=== PATIENT | male | born 1935 | race Caucasian/White ===

== ENCOUNTER 2016-10-04 08:50 | Inpatient (IN) | payer MEDICARE, OTHER ==
[~2016-10-04] VITALS: Ht 172.7 cm; Wt 68.6 kg
--- NOTE | ~2016-10-04 | HP ---
PATIENT'S NAME: HERMELINDA GRISSOM [facility] AGE: 80 Y [address] ROOM: [address] [address] LOCATION: [facility] ADMIT DATE: 10/04/2016 History & Physical DISCHARGE DATE: FAMILY PHYSICIAN: Everardo Mitchell MD ATTENDING PHYSICIAN: Santino DOUGLAS DATE OF SERVICE: ADDENDUM: CVA: The patient was initially admitted for workup for fall and altered mental status. Part of the etiology workup was CVA. MRI of brain shows small acute or subacute lacunar infarct in anterior right thalamus. No hemorrhage or mass effect. To give the patient aspirin. Start the patient on full dose Lipitor. Discussed finding with the patient. The patient already has an echo order. We will acquire echocardiogram. We will acquire CTA of head and neck. We will keep the patient on telemonitor. Neurology already consulted on admission. We will call Neurology again to notify the finding. We will change observation to inpatient due to MRI finding and diagnosis of CVA. STELLA WALTERS MD AD/modl /[id number] D: [id number] T: [id number] HISTORY & PHYSICAL
--- NOTE | ~2016-10-04 | ECHO ---
Transthoracic Echocardiography Report (TTE) Demographics Patient Name HERMELINDA GRISSOM Date of Study 10/07/2016 Patient Number [id number] Visit Number [id number] Date of 1935 Room Number G6232 Accession Number [id number] Gender Male Age 80 year(s) Referring Stephen Tanner Morale Officer Georgina Hillman RVT Physician MD Sabiha De Physician Interpreting Naren Strauss Agricultural Research Director Physician Supervising Ordering Physician Sabiha De MD/MLP Nurse Stress Bread Room Hand Conclusions Summary Technically difficult exam. The estimated left ventricular ejection fraction is 50%. Normal RV size and systolic function. Mild concentric left ventricular hypertrophy. Diastolic function indeterminate due to patient's arrhythmia. IVC measures 1.08 cm with inspiratory collapse. Mild mitral annular calcification. Procedure Type of Study TTE procedure:2D Echocardiogram. Procedure Date Date: 10/07/2016 Start: 03:13 PM Study Location: Inpatient Portable Technical Quality: Adequate visualization Indications:Syncope. Appropriate Use Criteria: 9 Patient Status: Routine HR: 54 bpm BP: 163/78 mmHg M-Mode/2D Measurements LV Diastolic Dimension: 4.68 cm LV Systolic Dimension: 3.68 cm LV Septum Diastolic: 1.45 cm LV PW Diastolic: 1.38 cm AO Root Dimension: 3.1 cm Cardiac Output: 1.81 l/min AV Cusp Separation: 1.8 cm LVOT: 2 cm RV Base: 2.32 cm LVOT VTI: 10.7 cm RV Mid: 2.42 cm LV Stroke volume: 33.6 ml TAPSE: 2.38 cm TDI-S': 17.9 cm/s Doppler Measurements AV Peak Velocity: 0.94 m/s MV Peak E-Wave: 0.34 m/s AV Peak Gradient: 3.53 mmHg MV Peak A-Wave: 0.47 m/s AV Mean Gradient: 2 mmHg MV E/A Ratio: 0.73 LVOT Peak Velocity: 0.5 m/s PV Peak Velocity: 0.72 m/s PV Peak Gradient: 2.09 mmHg E' Septal Velocity: 0.05 m/s A' Septal Velocity: 0.12 m/s E' Lateral Velocity: 0.05 m/s A' Lateral Velocity: 0.12 m/s Findings Left Ventricle Mild concentric left ventricular hypertrophy. Diastolic function indeterminate due to patient's arrhythmia. Right Ventricle Normal right ventricle structure and function. Left Atrium Normal left atrial size. Right Atrium IVC measures 1.08 cm with inspiratory collapse. Mitral Valve Mild mitral annular calcification. Aortic Valve Normal aortic valve structure and function. Tricuspid Valve Normal tricuspid valve structure and function. Pulmonic Valve Normal pulmonic valve structure and function. Pericardial Effusion No evidence of pericardial effusion. Miscellaneous The aortic root appears mildly dilated. The maximum diameter measures 3.1 cm. Pleural Effusion No evidence of pleural effusion. Contractility Score LV regional wall motion:(0-Non visualized 1-Normal 2-Hypokinesis 3-Akinesis 4-Dyskinesis 5-Aneurysm) Signature dtt: PATIENCE BALTAZAR dtd: 10/07/16 7208 Physician Self Edit
--- NOTE | ~2016-10-04 | NDGEN ---
PATIENT'S NAME: HERMELINDA GRISSOM [facility] AGE: 80 Y [address] ROOM: [place] [address] LOCATION: [facility] ADMIT DATE: 10/04/2016 Neurodiagnostics DISCHARGE DATE: FAMILY PHYSICIAN: Everardo Mitchell MD ATTENDING PHYSICIAN: Santino DOUGLAS PROCEDURE: ELECTROENCEPHALOGRAM DATE OF PROCEDURE: 10/07/2016 TEST: TECH: CLINICAL DIAGNOSIS: DURATION OF EE minutes. REASON FOR EEG: Syncope/fall. CLINICAL HISTORY: The patient is a 80-year-old male, who presented with acute encephalopathy. He has past history of hypothyroidism and dementia. He also had a fall. He is a poor historian. Over the past 8 months, the patient's memory has significantly declined according to family. EEG FINDINGS: The patient is awake for 60% to 70% of the EEG, asleep for remaining. During the awake portions of EEG, 7 to 8 hertz background was seen in the posterior head regions. During the sleep phase, vertex waves were seen in the central head regions. Activation procedures included photic stimulation between 3 to 30 hertz, which did not show any abnormalities. CLASSIFICATION: Abnormal I ; awake, asleep, 10/20 scalp electrodes. 1. Background slow. IMPRESSION: This EEG shows evidence of a mild diffuse encephalopathy. No epileptiform discharges or EEG seizures were seen during this recording. MD GAEL RIVERA/modl /[id number] dtt: 10/08/16 1737 , NANO JIMENEZ dtd: 10/07/16 1755
--- NOTE | ~2016-10-04 | ENPV ---
Carotid Duplex Study Demographics Patient Name HERMELINDA GRISSOM Date of Study 10/07/2016 Patient Number [id number] Gender Male Date of 1935 Age 80 Visit Number [id number] Height 68 Accession Number [id number] Weight 151 Referring Sabiha Delgado MD Physician Physician Physician Ordering Physician Sabiha De President & Ceo Lube Technician Georgina Hillman [facility] Conclusions Summary The right internal carotid artery has mild, 1-39%, plaque and stenosis. The right vertebral artery is present with antegrade flow. The left internal carotid artery has mild, 1-39%, plaque and stenosis. The left vertebral artery is present with antegrade flow. Procedure Type of Study: Cerebral:Carotid, Carotid Doppler Bilateral. Indications for Study:Syncope. Appropriate Use Criteria:9 Blood Pressure:Left arm 163/78 mmHg. Patient Status:Routine. Study Location:Inpatient Portable. Technical Quality:Adequate visualization. Velocities are measured in cm/s ; Diameters are measured in cm Carotid Right Measurements Carotid Left Measurements + +--------+--------+ + + + +--------+ --------+ + + !Location !PSV !EDV !Angle !%Stenosis ! !Location !PSV ! EDV !Angle !%Stenosis ! + +--------+--------+ + + + +--------+ --------+ + + !Prox CCA !71 !12 !42 ! ! !Prox CCA !92 ! 15 !54 ! ! + +--------+--------+ + + + +--------+ --------+ + + !Dist CCA !62 !16 !60 ! ! !Dist CCA !55 ! 12 !54 ! ! + +--------+--------+ + + + +--------+ --------+ + + !Prox ICA !60 !14 !60 ! ! !Prox ICA !58 ! 12 !54 ! ! + +--------+--------+ + + + +--------+ --------+ + + !Mid ICA !48 !16 !36 ! ! !Dist ICA !70 ! 29 !54 ! ! + +--------+--------+ + + + +--------+ --------+ + + !Dist ICA !51 !17 !36 ! ! !Prox ECA !88 ! !54 ! ! + +--------+--------+ + + + +--------+ --------+ + + !Prox ECA !173 ! !60 ! ! !Vertebral !34 ! !36 ! ! + +--------+--------+ + + + +--------+ --------+ + + !Vertebral !41 ! !42 ! ! !Subclavian !67 ! ! ! ! + +--------+--------+ + + + +--------+ --------+ + + !Bkan !61 ! ! ! ! + +--------+--------+ + + - There is antegrade vertebral flow noted on the right side. - There is antegrade verte bral flow noted on the left side. - Add'l Measurements:ICAPSV/CCAPSV 0.84.ICAEDV/CCAEDV 1.49. - Add'l Measurements:ICAPS V/CCAPSV 0.76.ICAEDV/CCAEDV 1.98. Impressions Right Impression There is a moderate degree of smooth calcified plaque in the right carotid bifurcation . Signature dtt: Jayant Driscoll dtd: 10/07/16 1542 Physician Self Edit
--- NOTE | ~2016-10-04 | HP ---
PATIENT'S NAME: HERMELINDA GRISSOM [facility] AGE: 80 Y [address] ROOM: [place] [address] [place] [facility] [place] DATE: 10/04/2016 History & Physical DISCHARGE DATE: FAMILY PHYSICIAN: Everardo Mitchell MD ATTENDING PHYSICIAN: Santino DOUGLAS DATE OF SERVICE: CHIEF COMPLAINT: Acute encephalopathy. HISTORY OF PRESENT ILLNESS: The patient is a 80-year-old gentleman with past medical history of hypothyroidism and recent dementia who presents here from home with altered mental status and fall. The patient is a poor historian. Information is gathered from the . Apparently, the patient has been having memory issues ongoing for the past 8 months and has been progressively getting worse. Yesterday afternoon, the patient and [facility] and reports that it was warm, and he was sitting by the sun the whole day. They came back home and the patient was noted to be somewhat tired and fatigued than usual. The patient left on his recliner yesterday evening. This morning, the patient was found down on the floor, face down, when saw him, the patient was awake, but was weak and unable to bring himself up. picked the patient up and brought him here for further investigation. The patient is alert and oriented x1, not oriented to time and place, and denies any event of syncope or fall. The patient denies chest pain, shortness of breath, abdominal pain, nausea, vomiting, dysuria, weight loss, and diarrhea. Of note, reports that for the past 8 months or so, the patient's memory has declined. MEDICAL HISTORY: Dementia and hypothyroidism. PAST SURGICAL HISTORY: No surgical history. FAMILY HISTORY: Father had coronary artery disease. Mother of old age. 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 MEDICATION: PATIENT'S NAME: HERMELINDA GRISSOM [facility] AGE: 80 Y [address] ROOM: [address] [address] [place]: [facility] [place] DATE: 10/04/2016 History & Physical DISCHARGE DATE: FAMILY PHYSICIAN: Everardo Mitchell MD ATTENDING PHYSICIAN: Santino DOUGLAS Medications have been reconciled. REVIEW OF SYSTEMS: All systems have been reviewed and are negative except for what mentioned in the HPI. PHYSICAL EXAMINATION: VITAL SIGNS: Afebrile, blood pressure 159/71, respiratory rate 14, heart rate of 57, saturating 95% on room air. GENERAL APPEARANCE: The patient is alert and awake, lying on bed comfortably. HEAD: Normocephalic, atraumatic. EYES: Extraocular muscle intact. No discharge. NOSE: No nasal discharge. EARS: No ear discharge. MOUTH: Dry oral mucosa. CHEST: Clear to auscultation bilaterally. HEART: Regular rate and rhythm. No murmurs, rubs, or gallops. ABDOMEN: Soft, nontender, and nondistended. Bowel sounds present. SKIN: Warm to touch with poor turgor. MUSCULOSKELETAL: Range of motion intact. No obvious effusion noted. KNIFE GLAZER: The patient is alert and oriented x1, the patient is not oriented to place, time, and situation. Motor and sensory grossly intact. ASSESSMENT AND PLAN: 1. Acute encephalopathy. The patient is a 80-year-old gentleman with recent history of dementia and hypothyroidism, who presents here with fall and worsening of confusion. Etiology at this time unknown. Vital signs stable. On initial neurological examination, motor and sensory grossly intact. The patient alert and oriented x1, compared to recent mentation, this is a new worsening. His initial CT negative. No signs of infection. CT head negative. Chest x-ray unremarkable. UA currently pending. Etiology for fall might be syncope or seizure. Also of cerebrovascular accident is entertained. We will acquire MRI of brain without contrast. We will acquire echocardiogram to further investigate possible syncope and structural heart disease. We will acquire EEG for possible underlying postictal symptoms. Neurology consulted. We will admit the patient for observation to workup encephalopathy, possible syncope, or seizure. 2. Syncope. Possible syncope as the patient was found on the floor. Initial CT is negative. We will acquire echocardiogram and put the patient on telemonitor. We will also acquire EEG. 3. Dementia. The patient has been having dementia for the past 8 months and it is getting progressively worsening. We will acquire TSH level and RPR. We will also acquire vitamin B12 level. MRI is pending and Neurology is on board. PATIENT'S NAME: HERMELINDA GRISSOM [facility] AGE: 80 Y [address] ROOM: [address] [address] [place]: [facility] [place] DATE: 10/04/2016 History & Physical DISCHARGE DATE: FAMILY PHYSICIAN: Everardo Mitchell MD ATTENDING PHYSICIAN: Santino DOUGLAS 4. Hypothyroidism. Continue home medication. We will acquire TSH. 5. Dehydration. I suspect the patient might be dehydrated, has poor skin turgor and dry oral mucosa. We will start the patient on IV fluid. 6. Physical deconditioning. We will consult PT and OT. Assessment and plan was discussed with . We will admit the patient for observation. Spent greater than 45 minute in patient care. MD MARLEN SOLIS/modl /[id number] D: [id number] T: [id number] HISTORY & PHYSICAL
--- NOTE | ~2016-10-04 | DS ---
PATIENT'S NAME: HERMELINDA GRISSOM [facility] AGE: 80 Y [address] [place] [facility] [place], [place] [address] LOCATION: [facility] ADMIT DATE: 10/04/2016 Discharge Summary DISCHARGE DATE: 10/08/2016 FAMILY PHYSICIAN: Everardo Mitchell MD ATTENDING PHYSICIAN: Sabiha De PRIMARY DIAGNOSES: 1. Right thalamic cerebrovascular accident. 2. Acute encephalopathy. 3. Physical deconditioning. 4. Dyslipidemia. 5. Alzheimer dementia. 6. Vitamin B12 deficiency. 7. Essential hypertension. PRINCIPAL PROCEDURES: Done for the patient, none was indicated. LABORATORY DATA ON ADMISSION: WBC remained the same on admission. Sodium prior to discharge was stable throughout the hospital stay, it was 143. Creatinine also was stable throughout the hospital stay, prior to discharge it was 1.1. Bicarb was stable throughout the hospital stay. Potassium was stable at 3.8. Liver function test was also stable throughout the hospital stay. Total cholesterol was 242, triglyceride was 128, HDL was 41, and LDL was 176. INR is 1.0. Serum iron of 48, TIBC of 213, and transferrin saturation of 23%. CRP was less than 0.29. Vitamin B12 of 632. Ferritin of 641.8. Procalcitonin was less than 0.05. Microbiology: RPR was non- reactive. RADIOLOGY: Chest x-ray is reported as no evidence of acute pulmonary disease. CT of the head without contrast, no acute intracranial abnormality. MRI of the brain, small acute or subacute lacunar infarct in anterior right thalamus. No hemorrhage or mass effect. Moderately advanced brain atrophy. CTA of the head and neck is reported as right ICA cavernous segment significant atherosclerotic irregularity with narrowing including a severe focal stenosis at the level of the posterior genu. 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 Echocardiogram is reported as ejection fraction of 50%, normal RV size and systolic function, and mild concentric left ventricular hypertrophy. For the hospital course and for history of present illness, please take a look at the H and P, which was done by Dr. Landis. HOSPITAL COURSE: The patient was admitted to Neuro Trauma Unit, and was managed as per the stroke order pathway without tPA, given the time of presentation of the patient. His other stroke workup was abnormal, which PATIENT'S NAME: HERMELINDA GRISSOM [facility] AGE: 80 Y [address] ROOM: [id number] [place], [place] [address] LOCATION: [facility] ADMIT DATE: 10/04/2016 Discharge Summary DISCHARGE DATE: 10/08/2016 FAMILY PHYSICIAN: Everardo Mitchell MD ATTENDING PHYSICIAN: Sabiha De included an abnormal lipid panel, and also a CTA of the head and neck also shows some narrowing in the ICA. Please refer to the report of the CT of head and neck. His echocardiogram was within normal limits. For the first day of the hospital stay, the patient was a bit drowsy and difficult to stay awake. For this, there was concern for probable underlying or undiagnosed seizure. So, he did get an EEG done, which did not show any epileptiform changes. The patient was managed as per the stroke order set. He was aggressively hydrated for permissive hypertension. The next day, he did start physical therapy. The patient appeared to have developed some physical deconditioning; however, he did not have any neurological deficits. He was also being followed by Tele Neurology as well. He continued with his Occupational Therapy and Physical Therapy, which he was cooperative with, but however, the patient did show periods of forgetfulness during the stay, and he did demonstrate clinical evidence of dementia. After the patient was evaluated by Dr. Ruffin, they felt that the patient would benefit from inpatient rehab, which he did not really want to agree to, but however, patient was talked into agreeing for at least a week. On the day of discharge, the patient was started on a low-dose blood pressure medication of Norvasc. Vital signs were stable on the day of discharge, and he was discharged to . MEDICATIONS ON DISCHARGE: Included 1. Aspirin 81 mg p.o. daily. 2. Lipitor 80 mg p.o. daily, new medication. 3. Synthroid 50 mcg p.o. daily. 4. Multivitamin one tablet p.o. daily. 5. Protonix 40 mg p.o. daily, new medication. 6. PreserVision one capsule p.o. twice daily. 7. Vitamin D3, 2000 units p.o. daily. 8. Vitamin B12 dose subq every thirty days. 9. Norvasc 10 mg p.o. daily, new medication. MD INDIA GUPTA/ana maria /[id number] d: 10/09/16 0117 t: 10/12/16 1619, DISCHARGE SUMMARY
--- NOTE | ~2016-10-04 | CON ---
PATIENT'S NAME: HERMELINDA GRISSOM [facility] AGE: 80 Y [address] ROOM: [place] [address] LOCATION: [facility] ADMIT DATE: 10/04/2016 Consultation DISCHARGE DATE: FAMILY PHYSICIAN: Everardo Mitchell MD ATTENDING PHYSICIAN: Santino LANDIS REFERRING PHYSICIAN: KEV DAVALOS MD A consult for Dr. Landis, hospitalist. HISTORY OF PRESENT ILLNESS: This 80-year-old gentleman was admitted on 10/04 with history of being found on floor with altered mental status, unable to remember recent events, and possibly confused. He did undergo evaluation including CT scan which showed no gross abnormalities; however, MRI of the brain showed small acute and subacute lacunar infarcts in the anterior right thalamus. He has been having history of progressive dementia for the last 8 months or so, but nothing like this episode. He has no trauma. History of hypothyroid. SOCIAL HISTORY: He denies smoking and/or drinking. PHYSICAL EXAMINATION: Now, he is alert, confused. Not able to orient well to person, place, and time. He has good attention span, maintains good eye contact. His voice is clear and not wet. He is hesitant to say something. He can understand well; however, he is apraxic with his mouth and lips movement. Tongue and soft palate are moving symmetrical, and voice is clear and not wet. He can move all 4 with muscle strength of about 4/5 throughout. Deep tendon reflexes are 1+ throughout. He has good bowel and bladder control so far. MEDICATIONS: He is on the following medications: 1. Vitamin B12. 2. Theragran-M. PATIENT'S NAME: HERMELINDA GRISSOM [facility] AGE: 80 Y [address] ROOM: [place] [id number] LOCATION: [facility] ADMIT DATE: 10/04/2016 Consultation DISCHARGE DATE: FAMILY PHYSICIAN: Everardo Mitchell MD ATTENDING PHYSICIAN: Santino LANDIS 3. Levothyroxine. 4. Vitamin D3. 5. Aspirin. 6. Protonix. 7. Trandate. 8. Lipitor. 9. NaCl 0.9%. ASSESSMENT AND PLAN: I feel that this gentleman is doing well. He needs to continue speech therapy; however, PT and OT have been initiated, and he is doing well. I feel that he can go on outpatient basis, but he needs to follow with the speech pathologist for a while, and probably he can do that under his family physician's supervision; however, he should not drive and/or operate any mechanical device until he is re-evaluated. Thank you for this referral. All the above was explained to him in detail. He verbalized understanding and so did his . EARL WILSON MD WMValorie/modl /[id number] d: 10/07/16 1154 t: 10/08/16 0826, CONSULTATION REPORT
--- NOTE | ~2016-10-04 | ER ---
PATIENT'S NAME: HERMELINDA GRISSOM [facility] AGE: 80 Y [address] ROOM: [place] [address] LOCATION: [facility] ADMIT DATE: 10/04/2016 ER/Outpatient Report DISCHARGE DATE: FAMILY PHYSICIAN: Everardo Mitchell MD ATTENDING PHYSICIAN: Santino DOUGLAS CHIEF COMPLAINT: Generalized weakness. 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 Last night, he went to the field and when he came back, he was very weak and hot. He did not eat supper, like he normally would and was just not feeling well. No specific complaints according to the family. He does have a history of high blood pressure. He slept on the recliner this morning, which is unusual for him and this morning upon awakening, the found him face down on the floor next to the chair. She was unable to get him up, he had to be lifted by a family member, placed in a vehicle, and brought in. He supposedly was nonverbal. PAST MEDICAL HISTORY: Documented on the record and reviewed by me. SOCIAL HISTORY: Documented on the record and reviewed by me. MEDICATIONS: Documented on the record and reviewed by me. ALLERGIES: DOCUMENTED ON THE RECORD AND REVIEWED BY ME. REVIEW OF SYSTEMS: All systems were reviewed and negative except as noted in the HPI. PHYSICAL EXAMINATION: VITAL SIGNS: Blood pressure 222/93, pulse 60, respiratory rate 16, temperature 97.3, SpO2 is 96% on room air. Pain 0/10. GENERAL: Elderly male, in no obvious pain or distress. No other acute findings. NEUROLOGIC: The patient is awake, he is minimally verbal for me. He has no specific complaints. No dysarthria and does follow commands in all extremities. He is diffusely weak but symmetric. No focal deficits appreciated on exam. HEENT: Normocephalic, atraumatic. Eyes are PERRL. Oropharynx is clear. PATIENT'S NAME: HERMELINDA GRISSOM [facility] AGE: 80 Y [address] ROOM: [place] [address] LOCATION: [facility] ADMIT DATE: 10/04/2016 ER/Outpatient Report DISCHARGE DATE: FAMILY PHYSICIAN: Everardo Mitchell MD ATTENDING PHYSICIAN: Santino DOUGLAS NECK: Supple. Trachea is midline. CHEST: Heart is regular rate and rhythm. LUNGS: Clear to auscultation bilaterally with no rhonchi, wheezes, or rales. ABDOMEN: Soft, nontender, and nondistended. No rebound or guarding. EXTREMITIES: Warm and well perfused. No other obvious abnormalities. SKIN: Warm, dry, and intact. LABORATORY DATA AND X-RAYS: Head CT is unremarkable per Radiology. EKG reveals sinus rhythm, heart rate of 50 with normal intervals, and other than long QT with slight left axis deviation. There is inversion of the T-waves inferiorly. No comparison EKG. Procalcitonin is below threshold. CMS without appreciable abnormality other than elevation of BUN at 26. GFR 59. Amylase, lipase, CK-MB, and troponin are below detectable threshold. TPO is below threshold. Free T4 and TSH are within appropriate limits. CBC without appreciable abnormality. Lactate is 1.1. IMPRESSION: Acute onset of lethargy and weakness with unclear etiology, stroke is considered likely. EMERGENCY DEPARTMENT COURSE: The patient was seen and evaluated as above. His blood pressure was very high but he had no evidence of end-organ dysfunction other than not thinking correctly. I was unable to detect any acute neurologic abnormality. The patient was sleeping on several re-evaluations, was easily arousable, and continue to be able to speak and follow commands. He, however, was not at his baseline vigorousness and with his history, I was concerned. We will admit him to the Hospitalist Service with an MRI pending for further evaluation. His blood pressures trended down significantly while in the emergency department. However, after discussion of admission, his blood pressures did increase somewhat. At that time, he was admitted with plans to obtain the MRI. MD EMMA POWELL/ana maria /[id number] d: 10/05/16 1152 t: 10/14/163, OUTPATIENT REPORT
[2016-10-04 09:47] LABS: BASOPHIL # 0.1 K/uL (0.0-0.2); BASOPHIL % 0.5 %; EOSINOPHIL # 0.2 K/uL (0.0-0.5); EOSINOPHIL % 1.9 %; HEMATOCRIT 40.4 % (37.0-53.0); HEMOGLOBIN 13.3 g/dL (11.0-16.0); IMMATURE GRANULOCYTE % 0.3 %; LYMPHOCYTE # 1.4 K/uL (0.8-4.0); MCH 29.3 pg (27.0-34.0); MCHC 32.9 gm/dL (32.0-36.5); MONOCYTE # 0.5 K/uL (0.0-1.0); MONOCYTE % 5.7 %; MPV 8.7 fl (9.4-12.4); NEUTROPHIL % 76.6 %; NRBC % 0 /100WBC (0-0.00); PLATELET COUNT 214 K/uL (150-450); RBC 4.54 M/uL (3.50-5.50); RDW-CV 12.9 % (11.9-14.6); WBC 9.1 K/uL (4.0-11.0)
[2016-10-04 09:57] LABS: PROTIME 10.5 SECONDS (9.8-11.4); PTT 28 SECONDS (25-32)
[2016-10-04 10:10] LABS: ALBUMIN 3.5 gm/dL (3.5-5.0); ALK PHOS 81 IU/L (33-138); ALT 28 IU/L (12-78); ANION GAP 14.8 (10.0-19.0); AST 19 IU/L (10-40); BLOOD UREA NITROGEN 26 mg/dL (6-24); CALCIUM 9.2 mg/dL (8.5-10.5); CHLORIDE 106 mMol/L (96-110); CO2 24 mMol/L (22-32); CREATININE 1.2 mg/dL (0.6-1.3); ESTIMATED GFR (MDRD EQUATION) 59; POTASSIUM 3.8 mMol/L (3.7-5.1); SODIUM 141 mMol/L (135-145); TOTAL BILIRUBIN 0.7 mg/dL (0.0-1.5); TOTAL PROTEIN 7.8 g/dL (6.0-8.4)
[2016-10-04] MEDS ORDERED: LEVOTHROID (SY50 MCG PO (13:28)
[2016-10-04] MEDS ORDERED: VITAMIN E400 UNI2 PO (13:41)
[2016-10-04] MEDS ORDERED: PRESERVISION L1 EACH PO (13:41)
[2016-10-04] MEDS ORDERED: COD LIVER OIL1 EACH PO (13:42)
[2016-10-04] MEDS ORDERED: VITAMIN D-32000 UNI1 PO (13:42)
[2016-10-04] MEDS ORDERED: VITAMIN B-1000 MCG/M SUB-Q (13:44)
[2016-10-04] MEDS ORDERED: MEMORY VITAMIN PO (13:44)
--- NOTE | 2016-10-04 14:16 | NUR ---
D: pt admitted around 1330 from ER for fall/confusion. Pt poor historian and left to go home and didn't think he had much medical hx. hx of heart valve prolapse and thyroid problems. Pt has had increased memory issues last 6 months. Had a busy day yesterday with family and when they got home he was very tired, wouldn't eat supper and went to sleep in his recliner. woke up this am and found him flat on his face on the floor and couldn't get up. Bp sytolic in 200's most of time in ER but nothing given. CT was negative, no signs of infection. MRI of head done, awaiting results. BP upon arrival to floor is 214/106 pulse 68. Pt is confused and does not know where he is or what the year is. MD aware of BP, concerned for possible TIA or CVA, awaiting MRI results. Has scabs to left shoulder and a few red spots to right lower leg and buttocks.
--- NOTE | 2016-10-04 15:55 | NUR ---
D: pt admitted from ER @ 1330 for fall. Pt found laying face down next to his recliner this am by (see admission note). Pt hypertensive and bradcardiac at times in ER. systolic by 215-240 since arrival to floor, MD aware, to give labetalol IV if greater than 220 and heart rate greater than 60, have not needed to give it because bp back down to 170's at this time. Pt confused unware of where he is. MRI confirmed CVA. No facial droop or arm weakness noted at this time. Tele on. NPO for now until swallow study, see all new orders. Transfer to NTU for higher level of care.
--- NOTE | 2016-10-04 19:10 | NUR ---
Significant Event: PT TRANSFERRED FROM MSU TO ROOM 6232 AT 1700 PER BED. PT ALERT; ORIENTED TO SELF. FOLLOWS COMMANDS. MODERATE, EQUAL STRENGTH X4. PERRLA. ORDER TO KEEP SBP <220. SBP ON ARRIVAL WAS 173/86; ON ROOM AIR. DENIES ANY PAIN. Follow up: TELENEUROLOGY CONSULT, ECHO TOMORROW
--- NOTE | 2016-10-05 05:06 | NUR ---
Significant Event: PATIENT IS ALERT AND ORIENTED TO PERSON. FOLLOWS COMMANDS. PERRLA. FORGETFUL-CONFUSED AT TIMES. EQUAL MODERATE STRENGTH. SR-AMY. KEEP SBP LESS THAN 220- PRN HYDRALAZINE. 2+ PULSES. ROOM AIR-C/D, O2 IF NEEDED. NPO-DID NOT PASS NURSE BEDSIDE SWALLOW. USES URINAL AND IS INCONTINENT. 1A GB. SCATTERED ABRASIONS AND SCABS. PIV IN LEFT FOREARM WITH NS AT 100 ML/HR. FAMILY AT BEDSIDE. NIHSS-3. Follow up: ECHO TODAY 10/05. EEG ON ThursdaySeptember.
--- NOTE | 2016-10-05 14:08 | NUR ---
Significant Event: PT DISORIENTED TO PLACE/TIME. FORGETFUL. HX DEMENTIA. STROKE SCALE 3. MILD APHASIA. PERRLA. FOLLOWS COMMANDS. MODERATE, EQUAL STRENGTH X4. TRANSFERS WITH 1-ASSIST/GAIT BELT. CONTINENT/INCONTINENT OF URINE. LARGE BM THIS SHIFT. HAS BEEN UP IN THE CHAIR MOST OF THE DAY. TO KEEP SBP LESS THAN 220. ON ROOM AIR. BRADYCARDIA WITH PVC'S AT TIMES. BILATERAL CALF PUMPS ON. IV TO L)FA INFUSING NS AT 100 ML/HR. SPEECH CLEARED PT FOR A REGULAR DIET WITH THIN LIQUIDS. TAKES MEDICATIONS WHOLE WITH WATER. DENIES ANY PAIN. Follow up: CONTINUE TO MONITOR
[2016-10-06 06:25] LABS: ANION GAP 10.8 (10.0-19.0); BLOOD UREA NITROGEN 21 mg/dL (6-24); CALCIUM 8.5 mg/dL (8.5-10.5); CHLORIDE 110 mMol/L (96-110); CO2 26 mMol/L (22-32); CREATININE 1.1 mg/dL (0.6-1.3); ESTIMATED GFR (MDRD EQUATION) > 60; MAGNESIUM 2.1 mg/dL (1.8-2.6); PHOSPHORUS 2.4 mg/dL (2.5-4.9); POTASSIUM 3.8 mMol/L (3.7-5.1); SODIUM 143 mMol/L (135-145)
--- NOTE | 2016-10-06 07:25 | NUR ---
Significant Event: Patient is alert and oriented to person. Forgetful and confused at times. Follows commands. Moderate strength. SR-SB, keep SBP less than 220, DBP less than 120. Room air. Takes pills whole with water-regular diet with thin liquids. Uses urinal, incontinent, and will get up to bathroom. 1A with GB. NS at 100 in L) FA PIV. Last BM 10/05-bowels are active x4. Follow up: No pork products-per yarsanism. Echo and EEG on .
--- NOTE | 2016-10-06 16:19 | NUR ---
ULTRA HIGH FALL RISK Significant Event: A/O X1, forgetful/confused, cooperative, needs cues, 1 assist/gait belt. voids per toilet, ambulates in martel x3, up in chair all shift, good appetite. L)FA saline lock, NIHSS=3, Follow up: sleeps in recliner at home. ECHO/EEG in a.m.
--- NOTE | 2016-10-07 05:08 | NUR ---
Significant Event: Patient is alert and oriented to person. Follows commands with cueing. Can be impulsive/fidgety when he needs to use the restroom. VSS. Denies TAPIA, pain, or N/T. PERRLA. Equal moderate strength. SR-SB, HTN to keep SBP less than 220 and DBP less than 120. Room air. Regular diet with thin liquids-slightly aphasic. Last BM 10/05-bowels are active x4. Uses urinal and up to bathroom with 1A. PIV to L) post FA. at bedside. NIHSS-2.Afebrile. Likes to sleep in the recliner at night. Follow up: Echo and EEG today.
--- NOTE | 2016-10-07 12:27 | NUR ---
Significant Event:PT IS ALERT TO PERSON. THIS IS HIS BASELINE ACCORDING TO . FORGETFUL. HAS TROUBLE EXPRESSING HIMSELF AT TIMES. FOLLOW SIMPLE COMMANDS. MODERATE STRENGTH. UP 1A GB. CLEAR AND DIMINISHED LUNG SOUNDS. NONPRODUCTIVE COUGH. IV SL'D. HAD EEG TODAY. Follow up:ALARMS
--- NOTE | 2016-10-07 14:24 | NUR ---
Introduced self and role of care management to patient and his . They live in [place]. She states that he is normally able to do all his own ADL's. She does assist as needed. I explained that the [facility]. Patients states that the only way he will be willing to stay is if she can stay with him. I called and spoke with Thais ARIAS and she stated he will have a private room. I updated patient and his . They are will to "give rehab a try". Will plan on transfer to [facility] 10/08 at 0900. Kathleen LAURA and Dr Ordonez notified.
--- NOTE | 2016-10-08 05:34 | NUR ---
Significant Event: PATIENT IS ALERT AND ORIENTED TO PERSON. FOLLOWS COMMANDS WITH CUEING. VSS. PERRLA. EQUAL MODERATE STRENGTH THROUGHOUT. THE LAST HALF OF THE SHIFT THE PATIENT HAS BEEN A LITTLE RESTLESS AND HAS REMOVED MONITOR SEVERAL TIMES. SR-SB, HAS HAD SBP IN THE 190'S.-WE ARE TO KEEP SBP LESS THAN 220 AND DBP LESS THAN 120. ROOM AIR. REGULAR THIN LIQUIDS. BOWELS ARE ACTIVE X4-LAST BM 10/05. CONT AND INCONT OF URINE. 1A GB/CANE. PIV IN LEFT FA-SL'D. Follow up:GIRP TODAY AT 0900.
--- NOTE | 2016-10-08 08:50 | NUR ---
Significant Event:PT IS ALERT TO PERSON. FOLLOWS SIMPLE COMMANDS. PUPILS ARE EQUAL AND BRISK. NO C/O NUMBNESS OR TINGLING. NIHSS 3. CLEAR AND DIMINISHED LUNG SOUNDS. PRODUCTIVE COUGH BUT PT WILL NOT SPIT OUT SPUTUM. ACTIVE BS. ABRASION TO R) INGRAM AND L) SHOULDER. UP 1 ASSIST WITH CANE. AT BEDSIDE. PLANS TO GO TO [facility] TODAY Follow up:
== END 2016-10-08 10:26 | DRG 64 ==
LOC: GMED 08:50 → GNTU 12:02 → GMSU 12:02 → GNTU 15:48
PROVIDERS: Emergency Medicine; Hospitalist; ADMIT Internal Medicine
PROC: 4A00X4Z Measurement of Central Nervous Electrical Activity, External Approach (ICD-10-PCS; principal; 2016-10-07)
PROC: B246ZZZ Ultrasonography of Right and Left Heart (ICD-10-PCS; principal; 2016-10-07)
DX: I63.9 Cerebral infarction, unspecified (principal); G93.40 Encephalopathy, unspecified; E86.0 Dehydration; G30.9 Alzheimer's disease, unspecified; F02.80 Dementia in other diseases classified elsewhere, unspecified severity, without behavioral disturbance, psychotic disturbance, mood disturbance, and anxiety; E03.9 Hypothyroidism, unspecified; R55 Syncope and collapse; E53.8 Deficiency of other specified B group vitamins; I10 Essential (primary) hypertension
CPT/HCPCS: J7030; Q9967

== ENCOUNTER 2016-10-08 10:28 | Inpatient (IN) | payer MEDICARE ==
[~2016-10-08] VITALS: Ht 172.7 cm; Wt 68.4 kg
--- NOTE | ~2016-10-08 | HP ---
PATIENT'S NAME: HERMELINDA GRISSOM [place] AGE: 80 Y [address] ROOM: [address] [address] LOCATION: [facility] ADMIT DATE: 10/08/2016 History & Physical DISCHARGE DATE: FAMILY PHYSICIAN: Everardo Mitchell MD ATTENDING PHYSICIAN: Earl Wilson DATE OF SERVICE: HISTORY OF PRESENT ILLNESS: This 80-year-old gentleman is admitted for continuous medical treatment and intensive rehabilitation. 1. Unstable gait. 2. Dependent activities of daily and self-care. 3. Status post left-side decreased strength and coordination. 4. Confusion and unable to remember and orient self well with difficulty with memory secondary to acute encephalitis with altered mental status and falling secondary to a CVA. 5. Comorbid condition at risk of falling and dependent activities of daily and self-care. PAST MEDICAL HISTORY: 1. Dementia, progressive for the last several months as per his , recently accelerating. 2. Hypothyroidism. 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 Denied any alcohol and/or drug abuse. Alert, fairly oriented if cued to his surroundings, otherwise unable to remember details. VITAL SIGNS: Blood pressure 176/81, temperature 97.9, pulse 57, respirations 18. He is 5 feet tall and weighs about 68.6 kg. ALLERGIES: NO KNOWN ALLERGIES. I SAW THIS GENTLEMAN ON INITIAL CONSULT ON 10/07/2016, AND I DID SUGGEST THAT PROBABLY IF HE CONTINUES TO DO WELL, HE COULD GO AND BE FOLLOWED UP AN OUTPATIENT BASIS WITH HIS FAMILY PHYSICIAN. HOWEVER, HE STILL REMAINS MARKEDLY CONFUSED AND UNABLE TO REMEMBER AND EASILY AT RISK OF MAKING MISTAKES AND STILL AT RISK OF FALLING. ALTHOUGH, HE CAN WALK 300 FEET THE LAST TIME, HE IS WITH IMPAIRED COGNITION PATIENT'S NAME: HERMELINDA GRISSOM [place] AGE: 80 Y [address] ROOM: [address] [address] LOCATION: [facility] ADMIT DATE: 10/08/2016 History & Physical DISCHARGE DATE: FAMILY PHYSICIAN: Everardo Mitchell MD ATTENDING PHYSICIAN: Earl Wilson AND AT RISK OF FALLING. PHYSICAL EXAMINATION: HEAD: Otherwise normocephalic with slight left facial droop and left-side neglect and unattending to the left side unless skewed. NEUROLOGIC: Cranial nerves 2 through 12 are otherwise within normal limits except for his cognition. He is unable to remember and/or be able to remember well. It been going on for quite some time and for the last several months with acceleration lately. NECK: Otherwise is supple. Trachea is central. CHEST: Moving equally and lungs are clinically clear. HEART: Regular sinus rhythm. ABDOMEN: Soft. Tongue and soft palate are moving symmetrical. Voice is clear and not wet. He is hesitant to talk. He has history of hypothyroidism and history of dementia, progressive. 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 MEDICATIONS: He is on the following medications: 1. Aspirin 81 mg p.o. daily. 2. Lipitor 80 mg p.o. daily. 3. Vitamin D 2000 units p.o. daily. 4. Theragran-M 1 tablet p.o. daily. 5. Protonix 40 mg p.o. daily. 6. Xylocaine 1% vial as needed. 7. Vitamin C 1 cap p.o. b.i.d. 8. Vitamin B12 1000 mcg subcu q.30 days. ASSESSMENT AND PLAN: At the present time, he can ambulate up to 300 feet with close supervision. He is at the risk of falling, and we will put on intensive PT, OT, speech 3 hours per day 15 hours per week for the coming about 2 weeks aiming to discharge on modified independence in a.m., and on 10/09, we will send for CBC, urinalysis, CMS, and prealbumin. We will keep on hospitalist to follow as necessary. All the above was explained to him and his . They verbalized understanding and in agreement with plan of care. EARL WILSON MD PATIENT'S NAME: HERMELINDA GRISSOM [place] AGE: 80 Y [address] ROOM: [id number] [place], [place] [address] LOCATION: [facility] ADMIT DATE: 10/08/2016 History & Physical DISCHARGE DATE: FAMILY PHYSICIAN: Everardo Mitchell MD ATTENDING PHYSICIAN: Earl Wilson/modl /[id number] D: [id number] T: [id number] HISTORY & PHYSICAL
--- NOTE | ~2016-10-08 | OR ---
PATIENT'S NAME: HERMELINDA GRISSOM [facility] AGE: 80 Y [address] ROOM: [place] [address] LOCATION: [facility] ADMIT DATE: 10/08/2016 OR/Procedure Report DISCHARGE DATE: 10/15/2016 FAMILY PHYSICIAN: Everardo Mitchell MD ATTENDING PHYSICIAN: Catracho Ruffin SURGEON: Goran Casanova MD DISBURSING AGENT: DATE OF PROCEDURE: 10/13/2016 CORRECTED PATIENT ACCOUNT 10/16/16 AO PREOPERATIVE DIAGNOSES: 1. Transitional cell carcinoma of bladder. 2. Benign prostatic hyperplasia with bladder obstruction. POSTOPERATIVE DIAGNOSIS: 1. Transitional cell carcinoma of bladder. 2. Benign prostatic hyperplasia with bladder obstruction. 3. Final pathology pending. PROCEDURE: Cystoscopy, transurethral resection of bladder tumor (2 to 3 cm). ANESTHESIA: Regional. INDICATION: This is a 80-year-old gentleman, currently residing on rehab recovering from a CVA. He was found to have significant hematuria. He underwent diagnostic cystoscopy and retrograde which demonstrated a right- sided urothelial carcinoma. Upper tracts were unremarkable with exception of changes consistent with chronic outlet obstruction. There were no masses or filling defects. At that time, his diagnostic procedure, he was anticoagulated. We have held that. He presents at this time for definitive resection. PROCEDURE: Having obtained informed consent, the patient was taken to the cystoscopy suite. He was prepped and draped sterilely and in lithotomy position. A spinal block was placed. The resectoscope was assembled and guided into the urethra. The course of the urethra was unremarkable back to prostatic urethra. He has marked hypertrophy. Prostate is quite friable. My initial impression was that was likely where his bleeding was coming from in the phase of anticoagulation. We then found the tumor on the right side. I have started him on a five alpha reductase inhibitor. He has two separate lesions overlying the right intramural tunnel. They were approximately cm each with another small satellite lesion. Total tumor volume is 2 to 3 cm combining the three lesions. Unfortunately, the more lateral lesion is directly over the obturator. In spite of repositioning bit and bring that right leg and then turning down our cut power, we were still PATIENT'S NAME: HERMELINDA GRISSOM [facility] AGE: 80 Y [address] ROOM: [place] [address] LOCATION: [facility] ADMIT DATE: 10/08/2016 OR/Procedure Report DISCHARGE DATE: 10/15/2016 FAMILY PHYSICIAN: Everardo Mitchell MD ATTENDING PHYSICIAN: Catracho Ruffin getting a significant reflex. I ended up cauterizing a lot of that tumor to avoid perforation. We also had to be cognizant of the intramural tunnel right under his. I can see the orifice, and the tumor progresses up the right side over the intramural tunnel and then out laterally. I got all visible tumor resected and/or cauterized. We then removed all of the fragments. I placed a roller ball and continue with further cauterization of the base and periphery. After a final check for hemostasis, a 20-Slovenian catheter was placed. It irrigates nicely. The case was concluded. The patient tolerated the procedure well. Blood loss was minimal. The tumor sent for specimen. The patient returned to recovery in awake and stable condition. GORAN CASANOVA MD [facility]/modl /[id number] CC: MD Everardo Ocasio MD CORRECTED PATIENT ACCOUNT 10/16/16 AO d: 10/13/16 1932 t: 10/21/16 0636, OPERATIVE SUMMARY
--- NOTE | ~2016-10-08 | OR ---
PATIENT'S NAME: HERMELINDA GRISSOM [facility] AGE: 80 Y [address] ROOM: [id number] [place], [place] [address] LOCATION: [facility] ADMIT DATE: 10/08/2016 OR/Procedure Report DISCHARGE DATE: FAMILY PHYSICIAN: Everardo Mitchell MD ATTENDING PHYSICIAN: Catracho Ruffin SURGEON: Goran Casanova MD IMPLANT POLISHER: DATE OF PROCEDURE: 10/10/2016 PREOPERATIVE DIAGNOSES: 1. Gross and painless hematuria. 2. Recent fall with altered mental status with a probable lacunar infarct by MRI. 3. Remote history of smoking. POSTOPERATIVE DIAGNOSES: 1. Benign prostatic hypertrophy. 2. Urothelial carcinoma involving the right lateral wall. PROCEDURE: Cystoscopy and retrograde. ANESTHESIA: Sedation. INDICATION: This is a 80-year-old gentleman admitted last week with the recent fall and mental status changes. MRI scan suggests acute or subacute lacunar infarct. He is convalescing on the rehab unit. Dr. Ruffin had consulted me regarding gross hematuria. Upon review with the patient and his (she provides most history), he has never had any urologic history, complaints or exposure to urologic intervention. Consistent with that, his admission medications do not include any relevant medications. In fact, he has been quite healthy. 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 He was content with his premorbid voiding pattern. Never noticed any blood. He had been started on Lovenox. They did notice blood in his urine. He presents at this time for cystoscopy and retrograde. He is on Lovenox at this point. This will be diagnostic. PROCEDURE: Having obtained informed consent, the patient taken the cystoscopy suite. Prepped and draped sterilely and in lithotomy position. IV sedation was administered. The 21-Arabic cystoscope was assembled and guided into the urethra. The course of the urethra was unremarkable back to the prostatic urethra. He has marked trilobar hypertrophy. I have to look straight up to get over his middle lobe. Being on Lovenox, simple passage of the scope stir PATIENT'S NAME: HERMELINDA GRISSOM [facility] AGE: 80 Y [address] ROOM: [id number] [place], [place] [address] LOCATION: [facility] ADMIT DATE: 10/08/2016 OR/Procedure Report DISCHARGE DATE: FAMILY PHYSICIAN: Everardo Mitchell MD ATTENDING PHYSICIAN: Catracho Ruffin up some bleeding. I suspected that was going to be our source. Unfortunately, as we take a careful look around the bladder, we find obvious papillary lesions on the right side behind the orifice and along the right wall. They were least two separate lesions measuring at least a centimeter each. Also, consistent with chronic outlet obstruction is marked cellule and diverticula formation in his bladder wall. Preliminary survey was undertaken. It was difficult to say because of all the bowel gas, but I think he has a nonobstructing stone. It appears to overlie the left renal shadow. As we will see on retrograde, it appears to be in the collecting system. Preliminary survey was otherwise unremarkable. Because of his marked hypertrophy, we have to look down to see his orifices. Therefore, I used an acorn catheter. Retrogrades were obtain. Consistent with his chronic outlet obstruction, he has marked J-hooking of his ureters and his ureters were quite tortuous. Fortunately, they were not dilated. We had seen previously that his renal function is well-maintained. The bladder was drained. The case was concluded. I am going to add a 5-alpha reductase inhibitor in the form of dutasteride. We will hold his Lovenox. We will make arrangements for elective transurethral resection of his bladder tumor. The patient returned to Recovery, awake and stable condition. GORAN CASANOVA MD /modl /[id number] CC: MD Everardo Ocasio MD d: 10/10/16 1500 t: 10/21/16 0634, OPERATIVE SUMMARY
--- NOTE | ~2016-10-08 | DS ---
PATIENT'S NAME: HERMELINDA GRISSOM [facility] AGE: 80 Y [address] ROOM: [address] [address] LOCATION: [facility] ADMIT DATE: 10/08/2016 Discharge Summary DISCHARGE DATE: 10/15/2016 FAMILY PHYSICIAN: Everardo Mitchell MD ATTENDING PHYSICIAN: Earl Wilson HISTORY OF PRESENT ILLNESS: This 80-year-old gentleman was admitted to rehab unit at [facility] on 10/08/2016 and is discharged to home on 10/15/2016. 1. Unstable gait. 2. Dependent activities of daily and self-care. 3. Status post left-sided weakness with decreased coordination and confusion, unable to orient and was unable also to remember and difficulty with memory. 4. He was put on intensive rehab and is doing well at the present time. Alert and oriented with cueing and is able to follow instructions fairly well with supervision. 5. His is well aware that he needs 24 hours supervision for safety. VITAL SIGNS: Blood pressure 145/69, temperature 97.7, pulse 68, respirations 16. He is to follow with his family physician as soon as possible. He is at the present time able to talk; however, he can forget easily and needs to be redirected. He is given outpatient PT, OT, and Speech 3 times per week for the coming 4 weeks and follow up with his family physician. He is on the following medications. 1. Norvasc 10 mg p.o. daily. 2. Lipitor 80 mg p.o. daily. 3. Vitamin D 2000 units p.o. daily. 4. Vitamin B12 1000 mcg subcu q.3 days. 5. Avodart 0.5 mg daily. 6. Levothyroxine 50 mcg p.o. q.a.m. 7. Theragran-M 1 tablet p.o. daily. 8. Protonix 40 mg p.o. daily. FINAL DIAGNOSES: 1. Unstable gait. 2. Dependent activities of daily and self-care. 3. Left-sided weakness and improving. 4. Disorientation and forgetfulness. Memory difficulty. Needs 24 hour supervision for safety. Should not drive and/or operate any mechanical PATIENT'S NAME: HERMELINDA GRISSOM [facility] AGE: 80 Y [address] ROOM: [id number] [place], [place] [address] LOCATION: [facility] ADMIT DATE: 10/08/2016 Discharge Summary DISCHARGE DATE: 10/15/2016 FAMILY PHYSICIAN: Everardo Mitchell MD ATTENDING PHYSICIAN: Earl Wilson or electrical device until he is re-evaluated. 5. 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 6. Dementia. 7. Hypothyroid. 8. Dyslipidemia. 9. Reflux gastric disease. 10. Osteoporosis. 11. Hypertension. Recently, he had painless hematuria and urologist is following, found with cystoscopy a lateral right wall tumor and will follow with urologist Dr. Dawson on a regular basis. All the above was explained to his in detail and himself. The and himself verbalized understanding and agreement and she should have always supervision to him for safety and should not operate any mechanical or electrical device. He should follow with his family physician as soon as possible and it is advised also that he should avoid alcoholic beverage for the time being. EARL WILSON MD [facility]/modl /[id number] d: 10/15/16 1215 t: 10/17/16 0813, DISCHARGE SUMMARY
--- NOTE | ~2016-10-08 | CON ---
PATIENT'S NAME: HERMELINDA GRISSOM [facility] AGE: 81 Y [address] ROOM: [id number] [place] [address] LOCATION: GIRP ADMIT DATE: 10/08/2016 Consultation DISCHARGE DATE: 10/15/2016 FAMILY PHYSICIAN: Everardo Mitchell MD ATTENDING PHYSICIAN: Catracho Wilson PATINET ACCOUNT INFORMATION 11/06/2016 AO DATE OF CONSULTATION: 10/14/2016 REFERRING PHYSICIAN: Santino Landis MD Team members reporting include Dr. Wilson; Thais Prater, public health social worker; Amanda Calderon, RN; Bell Segal, PT; Marquita Mcknight, PT; Cindy St, OT; Re Garland, Speech Therapy; Ruthie Vaughn, therapeutic rec; and Sister Kristen daughter only pastoral Care. CURRENT STATUS: Althea Conroy is a 80-year-old man, admitted to our inpatient rehab unit. On October 08, 2016 following a CVA. The patient also has a premorbid diagnosis of dementia. He has a history of hypothyroidism, dyslipidemia, reflux, gastric disease, osteoporosis, and hypertension. The patient has a Augustin catheter. The patient can transfer sit to supine and supine to sit, contact guard assistance; [id number] and stand to sit, and bed to chair and chair to bed at standby. He can walk 300 feet with a single-point cane at contact guard assistance with cues. He can climb 12 stairs with 2 railings at contact guard assistance. He has been able to dress his upper and lower body at standby; grooming contact guard assistance. Bathing standby shower transfers, contact guard assistance. Verbal cuing as needed. is very supportive. He has met 4/13 long-term OT goals. The patient's comprehension is at minimal assistance. Language and expression, moderate to max assistance. Memory and problem solving, max assistance. The patient has left-sided neglect that is significant. Car transfers have not been done yet. The patient is very open to pastoral care. There are no pharmacy concerns. DISCHARGE PLAN: The patient is receiving 3 hours of PT, OT, and speech Thursday through Thursday. The patient has daily rehab, nursing, and physiatry involvement as well therapeutic recreational services 4 days per week. The patient has shown functional improvement and is progressing. Please see his plan of care for specific goals. Plan is for patient to discharge on October 15, 2016, with outpatient therapy services. THAIS PRATER FOR CATRACHO WILSON MD PATIENT'S NAME: HERMELINDA GRISSOM [facility] AGE: 81 Y [address] ROOM: [place] [address] LOCATION: [facility] ADMIT DATE: 10/08/2016 Consultation DISCHARGE DATE: 10/15/2016 FAMILY PHYSICIAN: Everardo Mitchell MD ATTENDING PHYSICIAN: Catracho Wilson TD/gladysl /[id number] CORRECTED PATINET ACCOUNT INFORMATION 11/06/2016 AO d: 10/20/16 1434 t: 11/21/16 1232, CONSULTATION REPORT
[~2016-10-08 10:28] MED LIST: COD LIVER OIL1 EACH PO; LEVOTHROID (SY50 MCG PO; MEMORY VITAMIN PO; PRESERVISION L1 EACH PO; VITAMIN B-1000 MCG/M SUB-Q; VITAMIN D-32000 UNI1 PO; VITAMIN E400 UNI2 PO
--- NOTE | 2016-10-08 17:33 | NUR ---
Significant Event: Patient admitted to floor at 1030. Diagnosis of right thalamus infarct. EEG showed mild encephalopathy. 1 assist with cane. Alert to person only. Needs lots of cueing. Can follow simple commands but with lots of help. Needs alarms. Strenght is equal and moderately strong. Has some left sided visual neglect. Mild aphasia. Sleeps in recliner more than the bed. Has a moist sounding cough. Lungs sounds are clear. Rosalva at bedside and will stay. [place] happened.
[2016-10-08 19:09] LABS: BILIRUBIN URINE NEGATIVE (NEGATIVE); BLOOD URINE 250 /UL (NEGATIVE); COLOR URINE YELLOW (YELLOW); GLUCOSE URINE NEGATIVE (NEGATIVE); KETONE URINE NEGATIVE (NEGATIVE); LEUKOCYTES URINE 25 /UL (NEGATIVE); NITRITE URINE NEGATIVE (NEGATIVE); PROTEIN URINE 30 mg/dL (NEGATIVE); SPEC GRAVITY URINE 1.025 (1.003-1.035); TURBIDITY URINE 3+ (CLEAR); UROBILINOGEN URINE NORMAL (NORMAL)
[2016-10-08 19:46] LABS: RBC URINE FULL FIELD #/HPF (NEGATIVE)
[2016-10-08 19:47] LABS: AMORPHOUS URINE 3+ (NEGATIVE); BACTERIA URINE FEW (NEGATIVE); MUCUS URINE 1+ (NEGATIVE)
--- NOTE | 2016-10-09 04:33 | NUR ---
Significant Event:Up with cane and one assist/gaitbelt, fairly steady on feet. Amb length of martel x 1, does well. Aphasic, needs verbal/tactile cues with repetitive verbal cues given to complete a task. UA sent to lab--has 25 leuk, 250 blood, 5-10 wbc and full field of blood--report placed on chart for Dr Eugene to review. Impulsive, doesn't use call light-- Rosalva with pt, she will be returning home this a.m. and another relative will be coming to stay with him until she returns this afternoon. Denies pain. Buttocks red--aloe applied. Sleeps in recliner, was in straight back chair, later went into his bed. There is a cot in hallway but room is so tight that she didn't want to use that. 162/84. Was mentioned to try and move pt into 95 today for larger space, but room isn't cleaned yet and admission is slated for that room. Moderate equal strength to arms/legs. Oriented to self, doesn't know date or year. Follow up:Have Dr Eugene review UA results that were placed on chart. ? move pt into larger room to facilitate family at bedside thru night hours.
[2016-10-09 05:10] LABS: BASOPHIL % 0.5 %; EOSINOPHIL # 0.3 K/uL (0.0-0.5); HEMATOCRIT 36.7 % (37.0-53.0); HEMOGLOBIN 12.2 g/dL (11.0-16.0); IMMATURE GRANULOCYTE % 0.3 %; LYMPHOCYTE % 24.9 %; MCH 29.5 pg (27.0-34.0); MCHC 33.2 gm/dL (32.0-36.5); MCV 88.9 fl (83.0-98.0); MONOCYTE # 0.7 K/uL (0.0-1.0); MONOCYTE % 8.9 %; MPV 8.9 fl (9.4-12.4); NEUTROPHIL # (ANC) 4.9 K/uL (1.4-9.0); NEUTROPHIL % 61.4 %; NRBC % 0 /100WBC (0-0.00); PLATELET COUNT 196 K/uL (150-450); RBC 4.13 M/uL (3.50-5.50); RDW-CV 12.9 % (11.9-14.6)
[2016-10-09 05:33] LABS: CALCIUM 8.8 mg/dL (8.5-10.5); CREATININE 1.2 mg/dL (0.6-1.3)
[2016-10-09 05:35] LABS: TOTAL BILIRUBIN 0.5 mg/dL (0.0-1.5)
--- NOTE | 2016-10-09 15:01 | NUR ---
Significant Event: PT DENIED PAIN. PT WAS NOTED TO HAVE BLOOD IN HIS URINE THIS A.M. DR. CASANOVA CONSULTED, WILL SEE THE PATIENT ON 10/10/16, TO BE NPO AT MIDNOC PER . PT MAY TAKE MEDS WITH SIPS IN THE A.M. PT WAS NOTED TO COUGH TOWARD THE END OF HIS MEAL, LUNG SOUNDS REASSESSED WITHIN AN HOUR POST MEAL WITH NO CHANGES NOTED. PT WAS SHOWERED PER OT THIS AM. PT ABLE TO VERBALIZE NEEDS. Follow up:NPO AT MIDNOC, LISTEN TO LUNGS AFTER MEALS.
--- NOTE | 2016-10-10 02:40 | NUR ---
Significant Event:Alert to self and .1 assist transfer with cane and gaitbelt. Fairly steady. Patient showed some confusion on following directions at HS. Unable to determine where he was to sleep and tried leaving the room. Currently sleeping in recliner. Alarms at all times r/t impulsivity.Dry Cough noted, states he has had it for months. Lung sounds diminished. Compression socks off at HS, refused pneumatics. Slight hematuria noted while voiding. present in room. Alarm on. Call light within reach. Follow up:NPO since midnight, may take morning meds with sips.
--- NOTE | 2016-10-10 09:01 | NUR ---
D: TR progress note for 10/10/16. I: Pt was to be seen for 2 units at 900 to begin initial evaluation. R: Pt not seen due to conflict with medical procedure. P: Will attempt to eval at later date.
--- NOTE | 2016-10-10 16:53 | NUR ---
Significant Event: Pt NPO for cysto this am. Pt returned to floor at 1250. Pt needed to stay in recovery a little longer r/t HTN. Apresoline IV given. IVF infusing to lt hand. IV sl at 1500. Pt unable to void post op and voiced feeling uncomfortable, small ant of bloody drainage from penis. Bladder scan done and showed >999, Dr Dawson notified and new orders received for catheter and irrigate with NS prn clots. Also permits for NPO sun at [facility], and surgical permit for Mon. for TURBT. requested that nurse not say "the word cancer" to her . Pt's did sign permits for procedure today r/t pt's dementia, Dr Dawson stated he explained R/B to for procedure on Mon. Pt follows simple direct directions best. Aloe vesta to buttocks prn t/o day. Follow up: Surgery Mon, valencia cath cares, irrigate cath PRN for clots if needed.
--- NOTE | 2016-10-11 04:06 | NUR ---
Significant Event:Alert to self and . Reorient to time and place. 1 assist transfer with gaitbelt and cane. Saline lock left hand patent. Augustin patent, bloody urine output with a few small clots from cysto yesterday. Cath cares done. No irrigation needed at his time. Alarms at al times. Impulsive. Bed alarm on, call light in reach. at bedside. Follow up:NPO midnight Thursday night/ Thursday for procedure Thursday. Do not leave patient unattended in bathroom, pulls on catheter. Irrigate catheter PRN for blood clots.
--- NOTE | 2016-10-11 18:51 | NUR ---
Significant Event: Rosalva very helpful with pt, pt understands her insturctions best, and she will repeat what the nurse says, and pt will try to do as asked. Left hand SL patent, pt noted to pick @ on occasion. Valencia patent with bloody urine. reported pt likes lemonade type drinks, had dietary send drinks up this afternoon and to have on all of pt meal trays to encourage fluids to help flush urine. By approx. 1730 Cath drainage, reddish clear with some clots in tube, Rosalva request staff do not say anything about pt having Cancer. Pt to have another procedure Mon. NPO @ [facility] [place] [facility] and Dr Dawson has done risk and benefits of procedure. Good skin care done buttocks/groin area every time taken to the BR. Did not irrigate cath. today. Alarms @ all times, and watchs pt, pt fall @ risk. Stay with pt while in BR. Pt broke valencia safety gauard, replaced with new one. Follow up:NPO midnight Thursday noc/Thursday AM procedure. Do not leave pt unattended in bathroom, pulls on catheter and picks @ self. Irrigate cath. PRN for blood clots.
--- NOTE | 2016-10-12 03:42 | NUR ---
Significant Event: Patient is alert and oriented to person needs reoriented to place and time. rooms in and is attentive to his needs. Up one assist GB/Walker. Saline lock to patient left hand patent no blood return. Was given a shower last night. Augustin patent with 1200 mls of bloody urine with small clots. No need for irriagation. Is impulsive needs alarmed at all times do not leave alone in BR. Follow up: NPO after midnight on Thursday
--- NOTE | 2016-10-12 12:14 | NUR ---
Significant Event:No changes in assessment, note charting. Augustin patent, urine appears to be getting a little less bloody and clearer, encourages fluids with pt. Rosalva request pt not be informed of Cancer DX. Pt to be NPO @ midnoc tonight for surgery in am, pre op list on the chart, and signed permit. Continue to monitor skin integrity, good skin care done buttocks/groin moisture barrier every time taken to the BR. Augustin not irrigated this shift, has been patent, small clots in tube. Alarms on @ all times, also watches pt as she is in the room all the time. Pt has been cooperative with plan of care, and wifes assist. Follow up:NPO @ midnoc, tonoc. for Mon am procedure, need pre op check list completed. Do not leave pt unattened in BR, pt pulls on cah. etc, picks @ self, Irrigate cath PRN as needed.
--- NOTE | 2016-10-12 12:35 | NUR ---
A-SCREENED D/T LOS; NEW ADMIT TO [facility] S/P R)[facility] HT: 68 IN. WT: 67.2 KG. BMI: 22.5 LABS: NA 142, K+ 4.0, GLU 91, BUN 33, AUTOMOTIVE SALES PROFESSIONAL 1.2, ALB 3.0, PREALB 28.0 MEDS: VIT B-12, VIT D, MVI, PROTONIX, PRN BOWEL MEDS DIET RX: REGULAR. PO INTAKE 75-100% EST NUTR NEEDS: 8531-4857 KCALS (25-30 KCALS/KG) 67-74 GM PROTEIN (1.0-1.1 GM/KG) 1 ML FLUID/KCAL D-NOT AT NUTRITION RISK; NO NUTRITION DX IDENTIFIED I-CONTINUE W/CURRENT DIET RX M/E-WILL ASSIST NEEDED
--- NOTE | 2016-10-13 01:55 | NUR ---
Significant Event: Patient is alert and pleasantly confused can be forgetful. VS. Up one assist with quad cane, gait mostly steady. Has had a Cysto last week valencia was placed. Valencia cath patent drains yellow urine with small blood clots. Patient has a very good urine OP already this shift he has had 1250mls out. Has a saline lock to his left hand that flushes with no bloody return. Is NPO since midnight for a planed TURBT. Patient rooms in and is attentive to his needs. has signed the consent for the surgery. Patient does not want staff to talk about Cancer DX to patient. Was given a Chlorhexiadine sponge bath before bedtime. Follow up: Alarm at all times for safety. Do not leave alone.
[2016-10-13 11:48] LABS: BASOPHIL % 0.4 %; EOSINOPHIL # 0.3 K/uL (0.0-0.5); EOSINOPHIL % 2.9 %; HEMATOCRIT 39.3 % (37.0-53.0); HEMOGLOBIN 12.7 g/dL (11.0-16.0); IMMATURE GRANULOCYTE # 0.1 K/uL (0.0-0.3); IMMATURE GRANULOCYTE % 0.6 %; LYMPHOCYTE # 1.6 K/uL (0.8-4.0); LYMPHOCYTE % 18.2 %; MCH 28.7 pg (27.0-34.0); MCHC 32.3 gm/dL (32.0-36.5); MCV 88.7 fl (83.0-98.0); MONOCYTE # 0.7 K/uL (0.0-1.0); MONOCYTE % 7.7 %; NEUTROPHIL # (ANC) 6.3 K/uL (1.4-9.0); NEUTROPHIL % 70.2 %; NRBC % 0 /100WBC (0-0.00); PLATELET COUNT 232 K/uL (150-450); RBC 4.43 M/uL (3.50-5.50); RDW-CV 12.7 % (11.9-14.6); WBC 8.9 K/uL (4.0-11.0)
[2016-10-13 12:00] LABS: INR - (THERAPEUTIC) 0.97 (0.92-1.07); PROTIME 10.2 SECONDS (9.8-11.4)
[2016-10-13 12:08] LABS: ALBUMIN 3.3 gm/dL (3.5-5.0); CALCIUM 9.1 mg/dL (8.5-10.5); CREATININE 1.2 mg/dL (0.6-1.3); TOTAL PROTEIN 7.7 g/dL (6.0-8.4)
[2016-10-13 12:13] LABS: TOTAL BILIRUBIN 0.7 mg/dL (0.0-1.5)
--- NOTE | 2016-10-13 16:46 | NUR ---
Significant Event:PATIENT ALERT BUT IS FORGETFUL. AT BEDSIDE ALL SHIFT. WENT TO SURGERY FOR TURBT THIS AM AND RETURNED AT 1535. VSS. RESTING IN BED. HAS GUNTER DRAINING LIGHT ORANGE COLORED URINE. DENIES PAIN. HAS TAKEN JELLO AND JUICE SINCE RETURN AND TOLERATING WELL. WANTED TO WAIT UNTIL SUPPER TO EAT SOLID FOOD DUE TO TIMING. ORDERING SUPPER. NO OTHER COMPLAINTS. Follow up:
--- NOTE | 2016-10-14 04:44 | NUR ---
Significant Event: denies pain. valencia patent with pale pink to yellow urine. red sediment earlier in shift. aphasic. disoriented to time and place. patient pulled iv out. taking fluids well. repositions self in bed. at bedside, reports they are going home on the 7th. on bedrest until am, then up to chair if urine clear. Follow up:
--- NOTE | 2016-10-14 09:30 | NUR ---
D: Therapeutic Recreation Initial Assessment on the 10/14/16. I: Patient seen for 2 units at [facility] to begin evaluation. 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 out to eat, auctions, appointments, visit [id number] weekly, check cows LEISURE INTERESTS: watch TV, movies, dog - nathan, cats, past big garden, some yard work, work in shop, likes being outdoors Patient is referred by medical staff for treatment and evaluation in the following areas: Community Skills, Functional Leisure Skills, Participation, Leisure Education/Behaviors, Family Education, Cognitive, Emotional. Information obtained: Interview, Chart Review, Family resource, Observation, other. BARRIERS TO LEISURE: Social, Physical, Transportation, Leisure Skills. Patient determined to be: APPROPRIATE FOR THERAPEUTIC RECREATION ASSESSMENT. TREATMENT WILL INCLUDE: Community living skills training Functional leisure development Physical skills development Cognitive skills development Social skills development Leisure education Emotional/behavioral adaptation Family education Community resources/packet TARGET EQUIPMENT/INFORMATION: Parking Permit to assess need Community Resources Energy conservation in community setting Van/Service/Taxi Scrip Adapted Leisure Equipment Stress management/Relaxation techniques Functional car transfers Leisure Education Behaviors: Attitude, Awareness, Participation. Patient functional skills level and potential: Guarded, pt demonstrates fair mobility with concerns for safety due to dementia and coping. Patient oriented ot TR services on Rehab unit. Pt/family provided input into goals setting and plan of care. Pt's goal is to return home. P: Target date set with personal goals established. Will continue with POC focusing on pt/family training and education. For additional information please see Nursing Data Base, PT, OT, CM, ST, initial assessments to [facility] and Interdisciplinary Assessments.
--- NOTE | 2016-10-14 12:54 | NUR ---
Significant Event: PATIENT UP 1 ASSIST, WALKER, GAIT BELT. DISORIENTED TO TIME. AT BEDSIDE HELPS KEEP HIM ORIENTED. ALARMS AT ALL TIMES. PULLS ON CATHETER. DRAINING YELLOW URINE NOW, WAS PINK WHEN PULLING ON CATHETER. VITALS STABLE ON ROOM AIR. DENIES PAIN. HAZARDOUS MED PRECATUION. PATIENT AND WANTING TO DC TOMORROW. Follow up:
--- NOTE | 2016-10-15 04:15 | NUR ---
Significant Event: Patient alert and oriented to self. helps to reorient. Transfers 1A GB/Cane. Alarms at all times. Catheter to be pulled this am, been draining yellow urine. Does pull at it at times. Plans to D'C today. VSS. Denies. Cooperative with cares. Follow up:
[2016-10-15] MEDS ORDERED: NORVASC10 MG PO (09:52)
[2016-10-15] MEDS ORDERED: LIPITOR80 MG PO (09:53)
[2016-10-15] MEDS ORDERED: AVODART0.5 MG PO (09:54)
[2016-10-15] MEDS ORDERED: THERAGRAN-M1 TAB PO (09:55)
[2016-10-15] MEDS ORDERED: PROTONIX40 MG PO (09:56)
--- NOTE | 2016-10-15 15:42 | NUR ---
Significant Event:PATIENT ALERT BUT FORGETFUL. VSS. TRANSFERS WITH 1 ASSIST, GAIT BELT AND CANE. STEADY ON HIS FEET. JANI DC'D THIS AM PRIOR TO DAY SHIFT. DID VOID THIS MORNING AND AGAIN A COUPLE TIMES THIS AFTERNOON. NO COMPLAINTS. HAS DENIED PAIN. AT BEDSIDE ALL SHIFT. DC INSTRUCTIONS REVIEWED WITH AND PATIENT. VERBALIZED UNDESTANDING OF INSTRUCTIONS. COPY GIVEN TO PATIENTS . DC TO HOME VIA PRIVATE VEHICLE. DC TO FRONT ENTRANCE VIA WHEELCHAIR WITH TRANSPORT STAFF. NO OTHER COMPLAINTS. Follow up:
--- NOTE | 2016-10-16 13:43 | NUR ---
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 I: Input from: patient, family, Dr. Ruffin, Corrie Gurrola manager completions, and Thais AMESW R: Reason for admission: CVA-lacunar infarct anterior right thalamus. Admission Date to [facility]: 10/08/16 Admission Date to Hospital: 10/04/16 Prior level of functioning: patient was independent with adl's prior to stroke. Prior living situation: one story house with basement. Financial resources/expectations: patient has Medicare and no supplement. Resources used: cane Resources available: HHC, outpatient therapy, SNF, [facility], [facility], DME. Family support available: Understands nature of health condition: no; patient has dementia. Recognizes impact of health condition on lifestyle: no; as above. Vocational/Educational: retired Behavior/Emotional needs: cues for safety. Monitor for signs and symptoms of depression and anxiety. Legal concerns: none. Discharge goal: home with . Assessment: Bentley is a 80 year old man from [place], [place] admitted after a stroke. He has also had progressive issues with dementia for the last 8 months or so. voices that she cues him frequently. Team conference was held on 10/14/16 and team felt that we could continue therapy for patient for a couple of weeks, but is insistent she is taking home on 10/15/16. She said that she promised him that he would only have to stay a week and she is following through on her promise. So, patient discharging on 10/15/16 with outpatient therapy. They plan to do their therapy in [place], [place]. Will call to see how patient is doing next week. Orientation to the program and CM services completed with Rafiq/. Initial plan of care and estimated length of stay discussed, disclosure statement reviewed including patient assessment rights. P: Target date and individual goals established. Please see POC for details. For additional information please see Nursing Data Base, PT, OT, TR, ST, Initial assessments to [facility].
== END 2016-10-15 15:05 | disposition disaster alternative care site (69) | DRG 987 ==
LOC: GIRP 10:28
PROVIDERS: ADMIT Physical Medicine & Rehabilitation
PROC: BT1D1ZZ Fluoroscopy of Right Kidney, Ureter and Bladder using Low Osmolar Contrast (ICD-10-PCS; principal; 2016-10-10)
PROC: BT141ZZ Fluoroscopy of Kidneys, Ureters and Bladder using Low Osmolar Contrast (ICD-10-PCS; principal; 2016-10-10)
PROC: 0TBB8ZX Excision of Bladder, Via Natural or Artificial Opening Endoscopic, Diagnostic (ICD-10-PCS; 2016-10-13)
PROC: 0TPBX0Z Removal of Drainage Device from Bladder, External Approach (ICD-10-PCS; 2016-10-15)
DX: I63.9 Cerebral infarction, unspecified (principal); G04.90 Encephalitis and encephalomyelitis, unspecified; I69.954 Hemiplegia and hemiparesis following unspecified cerebrovascular disease affecting left non-dominant side; C67.2 Malignant neoplasm of lateral wall of bladder; G30.9 Alzheimer's disease, unspecified; F02.80 Dementia in other diseases classified elsewhere, unspecified severity, without behavioral disturbance, psychotic disturbance, mood disturbance, and anxiety; R31.9 Hematuria, unspecified; R26.81 Unsteadiness on feet; Z74.1 Need for assistance with personal care; R41.0 Disorientation, unspecified; Z91.81 History of falling; E78.5 Hyperlipidemia, unspecified; N40.0 Benign prostatic hyperplasia without lower urinary tract symptoms; I10 Essential (primary) hypertension
CPT/HCPCS: J0360; J1650; J1956; J2001; J7030; J7120